=== PATIENT | male | born 1970 | race Hispanic/Latino ===

== ENCOUNTER 2020-06-13 10:58 | Observation (INO) | payer BC, MEDICARE ==
[~2020-06-13] VITALS: Ht 167.6 cm; Wt 142.9 kg
--- OUTSIDE RECORDS SUMMARY | 2020-06-13 11:31 | XMS REPORT | Continuity of Care Document ---
Author Author [facility] t Organization [facility] Address [address] [place] [address] Phone Unavailable Care Team Providers Care Vehicle Maintenance Supervisor Name Role Phone Maria Lr Attphys Aki Smith Attphys Problems Condition Name Condition Details Condition Category Status Onset Date Resolution Date Last Treatment Date Treating Clinician Comments Source R76.12 - NONSPEC REACTION TO GAMMA INTR R76.12 - NONSPEC REACTION TO GAMMA INTR Active 03/01/2020 [facility] Diagnosis Active 2020-03-01 00:01:00 2020-04-08 12:27:00 M [facility] C64.9 MALIGNANT NEOPLASM OF UNSPECIFIED C64.9 MALIGNANT NEOPLASM OF UNSPECIFIED Active 07/29/2019 [facility] Diagnosis Ac tive 2019-07-29 00:00:00 2019-08-21 11:25:00 [facility]LAS[facility] LEFT RENAL PELVIS MALIGNANT NEOPLASM OF LEFT RENAL PELVIS Active [facility] Diagnosis Active 2019-08-21 11:25:00 [facility] Allergies, Adverse Reactions, Alerts This patient has no known allergies or adverse reactions. Medications This patient has no known medications. Procedures This patient has no known procedures. Encounters Start Date/Time End Date/Time Encounter Type Admission Type [facility] Care Department Encounter ID Source 2020-03-04 14:23:00 2020-03-04 23:59:00 [id number] 2019-08-21 11:18:00 2019-08-21 23:59:00 Outpatient Ramonmat Davidteja [facility] [id number] 2019-08-21 11:18:00 2019-08-21 11:18:00 [facility] [address] [facility] Results This patient has no known results.
--- OUTSIDE RECORDS SUMMARY | 2020-06-13 11:31 | XMS REPORT | Continuity of Care Document ---
Author Author [place] DENNIS Reece yeppt Address Unknown Phone Unavailable Care Team Providers Care Supervisor Firearms Name Role Phone RAP Index Information EBIQUOUS Unavailable Un available Problems Problem Status Onset Date Classification Date Reported Comments Source R76.12 - NONSPEC REACTION TO GAMMA INTR Active 03/01/2020 NANY Dowell C64.9 MALIGNANT NEOPLASM OF UNSPECIFIED Active 07/29/2019 [facility] MALIGNANT NEOPLASM OF LEFT RENAL PELVIS Active [facility] Medications No Data Provided for This Section Allergies, Adverse Reactions, Alerts No Known Medication Allergies Immunizations No Data Provided for This Section Results No Data Provided for This Section Pathology Reports No Data Provided for This Section Diagnostic Reports Report Value Date Source Chest 2 views DX HISTORY: - R76.12 Nonspecific reaction to cell mediated immunity measurement of gamma interferon antigen response without active tuberculosis TECHNIQUE: PA and lateral views of the chest. COMPARISON: None available. FINDINGS: Linear atelectasis versus scarring is seen in the left mid to lower lung zone. There is no focal consolidation, pleural effusion, or evidence of pneumothorax. The cardiomediastinal silhouette and pulmonary vasculature are within normal limits. IMPRESSION: No radiographic evidence of acute cardiopulmonary disease. [id number] 03/04/[address] Other Tumor PROCEDURE I NFORMATION: Exam: PET/CT Skull Base to Mid-thigh Exam date and time: 08/21/2019 1:04 PM Age: 49 years old Clinical indication: Malignant neoplasm of left renal pelvis; Additional info: Restaging - c65.2 malignant neoplasm of left renal pelvis/dlp= 2719.92 mgy*cm , ctdivol= 15.75 mgy LABS AND CLINICAL REPORTS: Glucose: 91 mg/dl TECHNIQUE: Imaging protocol: Following at least four-hour fasting and following the injection of F-18-FDG, low dose CT images were obtained from the orbital meatal line through the pelvis. Then, PET images were obtained through the same region. Attenuation corrected images were constructed using the CT scan. Fused images of PET and CT were reviewed. The standardized uptake values (SUV) reported below are maximum values within a region of interest, expressed in gm/ml. Radiopharmaceutical: 16.0 mCi F18-FDG, IV Time of imaging post radiopharmaceutical administration: 1 hour Injection site: Right hand COMPARISON: No relevant prior studies available. FINDINGS: Head: Visualized portion of the brain demonstrates no abnormality in the radiotracer distribution of the cortex, deep subcortical structures, and the cerebellum. Right maxillary sinus polyps or mucous retention cyst. Neck: Evaluation of the neck demonstrates normal uptake within the cervical lymph nodes. There is normal uptake within the salivary glands, and remaining cervical structures. Chest: Evaluation of the thorax demonstrates no abnormal uptake within the lungs. Physiologic myocardial uptake is present. There are no hypermetabolic mediastinal lymph nodes. Cardiomegaly. Bibasilar atelectasis. Abdomen and Pelvis: Examination of the abdomen and pelvis shows normal uptake within the adrenal glands, liver, spleen, pancreas, renal cortices and collecting system. There are no hypermetabolic lymph nodes. Post left nephrectomy. Hepatomegaly. Nonspecific colonic uptake. Bones/joints: No metabolically active areas are noted within the osseous structures. Soft tissues: No metabolically active areas are noted within the soft tissue. IMPRESSION: 1. No abnormal metabolic activity to sug gest malignancy. 2. Nonspecific colonic uptake. Correlati on with a recent colonoscopy is recommended. Jez Skelton MD On 08/22/2019 08:26:26; [id number] 08/21/2019 [facility] Consultation Notes No Data Provided for This Section Discharge Summaries No Data Provided for This Section History and Physicals No Data Provided for This Section Vital Signs No Data Provided for This Section Encounters Location Location Details Encounter Type Encounter Number Reason For Visit Attending Provider ADM Date DC Date Status Source [facility] Outpatient [id number] Irfteja Jawed 08/21/2019 08/22/2019 [facility] [place] Outpt Diag Services [id number] 00 Asuncion Lr 03/04/2020 03/05/2020 [facility] [place] Procedures No Data Provided for This Section Assessment and Plan No Data Provided for This Section Plan of Care No Data Provided for This Section Social History Social History Date Source Social History TypeResponse 03/05/2020 [facility] [place] Social History TypeResponse 08/22/2019 [facility] Family History No Data Provided for This Section Advance Directives No Data Provided for This Section Functional Status No Data Provided for This Section
--- NOTE | 2020-06-13 12:06 | Emergency Department Note ---
History of Present Illnes History of Present Illness Chief Complaint: Respiratory History of Present Illness This is a 50 year old male with 2 week history of cough shortness reza th and generalized malaise/weakness. . Chief Complaint Comment PATIENT IN FROM HOME WITH COMPLAINTS OF COUGH X 2 WEEKS AND SHORTNESS OF BREATH STARTING THIS MORNING. PATIENT AFEBRILE, RESP EVEN AND NONLABORED, APPEARS IN NO DISTRESS, SHORTNESS OF BREATH ON EXERTION. PATIENT PRESCRIBED A DIURETIC ON SUNDAY FOR BILATERAL LOWER EXTREMITY SWELLING Historian: Patient Arrival Mode: Car Onset (how long ago): day(s) Severity: mild Duration (how long): day(s) Timing of current episode: constant Progression: worsening Chronicity: new Relieving factors: none Past Medical/Family History Physician Review I have reviewed the patient's past medical and family history. Any updates have been documented here. Past Medical History Recent Fever: No Clinical Suspicion of Infectio: Yes New/Unexplained Change in Ment: No Past Medical History: Hypertension, Diabetes, Hypothyroidism, Hyperlipedemia, Chronic Kidney Disease Other Medical History: SPONDYLOSIS Past Surgical History: Cholecysctectomy, T&A Other Surgery: LEFT NEPHRECTOMY Social History Physically hurt or threatened: No Review of Systems Review of Systems Constitutional: Reports no symptoms EENTM: Reports no symptoms Cardiovascular: Reports no symptoms Respiratory: Reports as per HPI, Reports cough, Reports dyspnea, Reports dyspnea on exertion Gastrointestinal: Reports no symptoms Genitourinary: Reports no symptoms Musculoskeletal: Reports no symptoms Integumentary: Reports no symptoms Neurological: Reports no symptoms Psychological: Reports no symptoms Endocrine: Reports no symptoms Hematological/Lymphatic: Reports no symptoms Physical Exam Related Data Allergies: Coded Allergies: No Known Allergies (Unverified , 06/13/20) Triage Vital Signs Vital Signs Date Time Temp Pulse Resp B/P (MAP) Pulse Ox O2 Delivery O2 Flow Rate FiO2 06/13/20 11:12 98.0 65 18 125/78 100 Room Air Vital signs reviewed: Yes Physical Exam CONSTITUTIONAL Constitutional: Present well-developed, Present well-nourished, Present obese HENT HENT: Present normocephalic, Present atraumatic, Present oropharynx clear/moist, Present nose normal HENT L/R: Present left ext ear normal, Present right ext ear normal EYES Eyes: Reports PERRL, Reports conjunctivae normal NECK Neck: Present ROM normal PULMONARY Pulmonary: Present effort normal, Present breath sounds normal CARDIOVASCULAR Cardiovascular: Present regular rhythm, Present heart sounds normal, Present capillary refill normal, Present normal rate GASTROINTESTINAL Abdominal: Present soft, Present nontender, Present bowel sounds normal GENITOURINARY Genitourinary: Present exam deferred SKIN Skin: Present warm, Present dry MUSCULOSKELETAL Musculoskeletal: Present ROM normal NEUROLOGICAL Neurological: Present alert, Present oriented x 3, Present no gross motor or sensory deficits PSYCHOLOGICAL Psychological: Present mood/affect normal, Present judgement normal Results Laboratory Lab results reviewed: Yes Laboratory comments Laboratory Tests Test 06/13/20 12:20 06/13/20 12:00 White Blood Count 14.73 x10e3/uL (4.8-10.8) Red Blood Count 4.79 x10e6/uL (4.3-5.7) Hemoglobin 13.7 g/dL (14.0-18.0) Hematocrit 42.1 % (38.2-49.6) Mean Corpuscular Volume 87.9 fL (81-99) Mean Corpuscular Hemoglobin 28.6 pg (28-32) Mean Corpuscular Hemoglobin Concent 32.5 g/dL (31-35) Red Cell Distribution Width 13.6 % (11.7-14.4) Platelet Count 329 x10e3/uL (140-360) Neutrophils (%) (Auto) 68.6 % (38.7-80.0) Lymphocytes (%) (Auto) 22.3 % (18.0-39.1) Monocytes (%) (Auto) 6.2 % (4.4-11.3) Eosinophils (%) (Auto) 1.7 % (0.0-6.0) Basophils (%) (Auto) 0.5 % (0.0-1.0) Neutrophils # (Auto) 10.1 (2.1-6.9) Lymphocytes # (Auto) 3.3 (1.0-3.2) Monocytes # (Auto) 0.9 (0.2-0.8) Eosinophils # (Auto) 0.3 (0.0-0.4) Basophils # (Auto) 0.1 (0.0-0.1) Absolute Immature Granulocyte (auto 0.11 x10e3/uL (0-0.1) Prothrombin Time 13.7 seconds (11.9-14.5) Prothromb Time International Ratio 1.00 Sodium Level 136 mmol/L (136-145) Potassium Level 3.7 mmol/L (3.5-5.1) Chloride Level 96 mmol/L (98-107) Carbon Dioxide Level 27 mmol/L (22-29) Anion Gap 16.7 mmol/L (8-16) Blood Urea Nitrogen 40 mg/dL (7-26) Creatinine 3.31 mg/dL (0.72-1.25) Estimat Glomerular Filtration Rate 20 ML/MIN (60-) BUN/Creatinine Ratio 12 (6-25) Glucose Level 280 mg/dL (74-118) Calcium Level 8.8 mg/dL (8.4-10.2) Total Bilirubin 0.5 mg/dL (0.2-1.2) Aspartate Amino Transf (AST/SGOT) 23 IU/L (5-34) Alanine Aminotransferase (ALT/SGPT) 11 IU/L (0-55) Alkaline Phosphatase 101 IU/L (40-150) Creatine Kinase 88 IU/L (30-200) Creatine Kinase MB 0.90 ng/mL (0-5.0) Troponin I 0.014 ng/mL (0-0.300) B-Type Natriuretic Peptide < 10.0 pg/mL (0-100) Total Protein 7.9 g/dL (6.5-8.1) Albumin 3.5 g/dL (3.5-5.0) Globulin 4.4 g/dL (2.3-3.5) Albumin/Globulin Ratio 0.8 (0.8-2.0) Imaging Imaging results reviewed: Yes Assessment & Plan Medical Decision Making MDM 50-year-old male arrives the ED with complaints of shortness of breath and chest pain several days. Patient but symptoms did start after taking Viagra, tachycardic and tachypneic on arrival. Concerns of possible pulmonary embolus. Patient also noted to have renal failure. VQ scan performed a followed up by primary attending. Patient admitted for further workup and management Assessment & Plan Final Impression: (1) Dyspnea Depart Disposition: ADMITTED Last Vital Signs Date Time Temp Pulse Resp B/P (MAP) Pulse Ox O2 Delivery O2 Flow Rate FiO2 06/13/20 11:12 98.0 65 18 125/78 100 Room Air Home Meds Reported Medications Simvastatin (SIMVASTATIN) 20 Mg Tablet, 20 MG PO 2100, EA 06/13/20 Metolazone (METOLAZONE) 5 Mg Tablet, 5 MG PO MON,WED,FRI, #30 TAB 06/13/20 Tramadol Hcl* (ULTRAM 50MG*) 50 Mg Tab, 0.5 TAB PO DAILY PRN for SEVERE PAIN (7- 10) 06/13/20 Metoprolol Tartrate (METOPROLOL TARTRATE) 50 Mg Tablet, 1 TAB PO DAILY 06/13/20 Furosemide (FUROSEMIDE) 80 Mg Tablet, 1 TAB PO DAILY 06/13/20 Glipizide (GLIPIZIDE ER) 5 Mg Tab.er.24, 1 TAB PO BID 06/13/20 Losartan Potassium (LOSARTAN POTASSIUM) 100 Mg Tablet, 100 MG PO DAILY, TAB 06/13/20 Amlodipine Besylate (AMLODIPINE BESYLATE) 10 Mg Tablet, 1 TAB PO DAILY 06/13/20 Calcifediol (Rayaldee) 30 Mcg Cap.sa.24h, 1 CAP PO HS 06/13/20 NELLIE KRAUS DO Jun 13, 2020 12:06
[2020-06-13 12:10] LABS: BASOPHILS # (AUTO) 0.1 (0.0-0.1); BASOPHILS % 0.5 % (0.0-1.0); EOSINOPHILS # (AUTO) 0.3 (0.0-0.4); EOSINOPHILS % 1.7 % (0.0-6.0); HEMATOCRIT 42.1 % (38.2-49.6); HEMOGLOBIN 13.7 g/dL (14.0-18.0); LYMPHOCYTES # (AUTO) 3.3 (1.0-3.2); LYMPHOCYTES % 22.3 % (18.0-39.1); MEAN CORPUSCULAR HEMOGLOBIN 28.6 pg (28-32); MEAN CORPUSCULAR HGB CONC 32.5 g/dL (31-35); MEAN CORPUSCULAR VOLUME 87.9 fL (81-99); MONOCYTES # (AUTO) 0.9 (0.2-0.8); MONOCYTES % 6.2 % (4.4-11.3); NEUTROPHILS # (AUTO) 10.1 (2.1-6.9); NEUTROPHILS % 68.6 % (38.7-80.0); PLATELET COUNT 329 x10e3/uL (140-360); RED BLOOD COUNT 4.79 x10e6/uL (4.3-5.7); RED CELL DISTRIBUTION WIDTH 13.6 % (11.7-14.4)
[2020-06-13] MEDS ORDERED: RAYALDEE30 MCG PO (12:11)
[2020-06-13] MEDS ORDERED: LOSARTAN POTAS100 MG PO (12:11)
[2020-06-13] MEDS ORDERED: AMLODIPINE BESY10 MG PO (12:11)
[2020-06-13] MEDS ORDERED: SIMVASTATIN20 MG PO (12:11)
[2020-06-13] MEDS ORDERED: METOPROLOL TART50 MG PO (12:11)
[2020-06-13] MEDS ORDERED: GLIPIZIDE ER5 MG PO (12:11)
[2020-06-13] MEDS ORDERED: METOLAZONE5 MG PO (12:11)
[2020-06-13] MEDS ORDERED: FUROSEMIDE80 MG PO (12:11)
[2020-06-13] MEDS ORDERED: ULTRAM 50MG50 MG PO (12:11)
--- NOTE | 2020-06-13 12:17 | Diagnostic Imaging Report ---
EXAMINATION: CHEST SINGLE (PORTABLE) INDICATION: Dizziness and shortness of breath. COMPARISON: None FINDINGS: TUBES and LINES: None. LUNGS: Normal lung volumes. Lungs are clear. No consolidations. There is bibasilar atelectasis. PLEURA: No pleural effusion or pneumothorax. HEART AND MEDIASTINUM: The cardiomediastinal silhouette is unremarkable. BONES AND SOFT TISSUES: No acute osseous lesion. Soft tissues are unremarkable. UPPER ABDOMEN: No free air under the diaphragm. IMPRESSION: No acute thoracic radiographic abnormality. Signed by: Gilbert Rodriguez MD on 06/13/2020 12:14 PM
[2020-06-13 12:18] LABS: PROTHROMBIN TIME 13.7 seconds (11.9-14.5)
[2020-06-13 12:25] LABS: ALBUMIN 3.5 g/dL (3.5-5.0); ALBUMIN/GLOBULIN RATIO 0.8 (0.8-2.0); ANION GAP 16.7 mmol/L (8-16); CALCIUM 8.8 mg/dL (8.4-10.2); CREATININE, SERUM 3.31 mg/dL (0.72-1.25); POTASSIUM 3.7 mmol/L (3.5-5.1)
[2020-06-13 12:35] LABS: CREATINE KINASE MB 0.9 ng/mL (0-5.0)
--- OUTSIDE RECORDS SUMMARY | 2020-06-13 14:40 | XMS REPORT | Continuity of Care Document ---
Author Author [facility] [place] DENNIS Reece [place] Address Unknown Phone Unavailable Care Team Providers Care Qa Software Tester Name Role Phone MobiPixie Information ClipMine Unavailable Un available Problems Problem Status Onset Date Classification Date Reported Comments Source R76.12 - NONSPEC REACTION TO GAMMA INTR Active 03/01/2020 NANY Dowell C64.9 MALIGNANT NEOPLASM OF UNSPECIFIED Active 07/29/2019 [facility] MALIGNANT NEOPLASM OF LEFT RENAL PELVIS Active [facility] Medications No Data Provided for This Section [...] No radiographic evidence of acute cardiopulmonary disease. [id number] 03/04/[address] Other Tumor [...] recommended. Jez Skelton MD On 08/22/2019 08:26:26; [id number] 08/21/2019 [facility] Consultation Notes No Data Provided for This Section Discharge Summaries No Data Provided for This Section History and Physicals No Data Provided for This Section Vital Signs No Data Provided for This Section Encounters Location Location Details Encounter Type Encounter Number Reason For Visit Attending Provider ADM Date DC Date Status Source [facility] Outpatient [id number] Irfteja Jawed 08/21/2019 08/22/2019 [facility] - [place] Outpt Diag Services [id number] Asuncion Lr 03/04/2020 03/05/2020 [facility] [place] Procedures No Data Provided for This Section Assessment and Plan No Data Provided for This Section Plan of Care No Data Provided for This Section Social History Social History Date Source Social History TypeResponse 03/05/2020 [facility] [place] Social History TypeResponse 08/22/2019 [facility] Family History No Data Provided for This Section Advance Directives No Data Provided for This Section Functional Status No Data Provided for This Section
--- OUTSIDE RECORDS SUMMARY | 2020-06-13 14:40 | XMS REPORT | Continuity of Care Document ---
Author Author [facility] t Organization [facility] Address [address] [place] [address] Phone Unavailable Care Team Providers Care Reconciliation Machine Operator Name Role Phone LIDIARoseannaTaiwo Attphys Unavailable Lr Maria Roland Attphys Aki Smith Attphys Problems Condition Name Condition Details Condition Category Status Onset Date Resolution Date Last Treatment Date Treating Clinician Comments Source R76.12 - NONSPEC REACTION TO GAMMA INTR R76.12 - NONSPEC REACTION TO GAMMA INTR Active 03/01/2020 NANY Dowell Diagnosis Active 2020-03-01 00:01:00 2020-04-08 12:27:00 [facility] C64.9 MALIGNANT NEOPLASM OF UNSPECIFIED C64.9 MALIGNANT NEOPLASM OF UNSPECIFIED Active 07/29/2019 [facility] Diagnosis Ac tive 2019-07-29 00:00:00 2019-08-21 11:25:00 [facility] 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 Medications This patient has no known medications. Procedures This patient has no known procedures. Encounters Start Date/Time End Date/Time Encounter Type Admission Type [facility] Care Department Encounter ID Source 2020-03-04 14:23:00 2020-03-04 23:59:00 Outpatient Asuncion Lr [facility] [id number] 2019-08-21 11:18:00 2019-08-21 23:59:00 Outpatient Aki Smith [facility] [id number] 2019-08-21 11:18:00 2019-08-21 11:18:00 Outpatient [facility] [address] [facility] Results Test Description Test Time Test Comments Results Result Comments Source CHEST SINGLE (PORTABLE) 2020-06-13 12:13:00 [place] [address] Patient Name: DENNIS NAM MR #: [id number] : 1970 Age/Sex: 50/M Req #: [id number] Adm Physician: Ordered by: NELLIE KRAUS DO Report #: [id number] Location: ER Room/Bed: Procedure: [id number] DX/CHEST SINGLE (PORTABLE) Exam Date: 06/13/20 Exam Time: 1110 REPORT STATUS: Signed EXAMINATION: CHEST SINGLE (PORTABLE) INDICATION: Dizziness and shortness of breath. COMPARISON: None FINDINGS: TUBES and LINES: None. LUNGS: Normal lung volumes. Lungs are clear. No consolidations. There is bibasilar atelectasis. PLEURA: No pleural effusion or pneumothorax. HEART AND MEDIASTINUM: The cardiomediastinal silhouette is unremarkable. BONES AND SOFT TISSUES: No acute osseous lesion. Soft tissues are unremarkable. UPPER ABDOMEN: No free air under the diaphragm. IMPRESSION: No acute thoracic radiographic abnormality. Signed by: Himanshu Avila MD on 06/13/2020 12:14 PM Dictated By: HIMANSHU AVILA MD 1213 Transcribed By: KEN on 06/13/20 1214 COPY TO: NELLIE KRAUS DO
--- NOTE | 2020-06-13 14:54 | Diagnostic Imaging Report ---
EXAM: CT Chest WITHOUT contrast INDICATION: Chest pain and shortness of breath. COMPARISON: Same day chest radiograph. TECHNIQUE: Chest was scanned utilizing a multidetector helical scanner from the lung apex through the level of the adrenal glands without administration of IV contrast. Absence of intravenous contrast decreases sensitivity for detection of lymphadenopathy and vascular pathology. Coronal and sagittal reformations were obtained. Routine protocol was performed. IV CONTRAST: None COMPLICATIONS: None RADIATION DOSE: Total DLP: 536 mGy*cm Estimated effective dose: (DLP x 0.014 x size factor) mSv CTDIvol has been reviewed. It is below the limits set by the Radiation Protocol Committee (RPC). Dose modulation, iterative reconstruction, and/or weight based adjustment of the mA/kV was utilized to reduce the radiation dose to as low as reasonably achievable. FINDINGS: LINES/ TUBES: None. LUNGS, PLEURA AND AIRWAYS: Airways are normal. There is bibasilar atelectasis. No focal consolidation, pleural effusion or pneumothorax. HEART AND MEDIASTINUM: The thyroid gland is normal. No mediastinal, hilar or axillary lymphadenopathy. The heart is normal in size. There is no pericardial effusion. There are mild atherosclerotic calcifications in the aorta and coronary arteries. UPPER ABDOMEN: Unremarkable. BONES: There are degenerative changes in the thoracic spine with slightly increased kyphosis. SOFT TISSUES: Unremarkable. IMPRESSION: No acute intrathoracic abnormality identified. Specifically, no focal consolidation, pleural effusion or pneumothorax. Signed by: Gilbert Rodriguez MD on 06/13/2020 2:50 PM
--- NOTE | 2020-06-13 16:17 | Diagnostic Imaging Report ---
Perfusion Lung Scan NOTE: Lung ventilation studies with xenon are not being performed per the recommendation of the Society of Nuclear Medicine and Molecular Imaging. It is not possible to be certain that the ventilation system is adequately disinfected. Ventilation studies with Tc-99m DTPA particles is contraindicated because the delivery by nebulization generates too many water droplets from the patient's airway. Clinical Information: Acute onset dyspnea Comparison: Chest radiograph 06/13/2020; Ct chest w/o contrast 06/13/2020 Discussion: Ventilation images were not obtained. See note above. Perfusion images of the lungs were obtained in multiple projections following intravenous administration of approximately 6 mCi of Tc-99m MAA. Distribution of tracer appears physiologic throughout the lungs. No segmental perfusion defects of any size are present. The cardiomediastinal silhouette is borderline enlarged. Impression: 1. Scan findings represent a VERY LOW probability for acute pulmonary embolic disease based on the perfusion-only modified PIOPED II criteria. Concurrent ventilation study would not alter the assigned probability for acute PE. 2. Borderline enlarged cardiac silhouette. Signed by: Dr. Suri Lewis M.D. on 06/13/2020 4:14 PM
[2020-06-13] MEDS ORDERED: HUMULIN N100 UNITS/ SQ (18:05)
[2020-06-13] MEDS ORDERED: ACETAMINOPHEN 325 MG TAB PO PRN (18:30)
[2020-06-13] MEDS ORDERED: ONDANSETRON HCL INJ 2MG/ML 2ML 2 MG/ML VIAL IV PRN (18:30)
[2020-06-13] MEDS ORDERED: DEXTROSE 50% SYRINGE 50 ML IV PRN (18:30)
[2020-06-13] MEDS ORDERED: TRAMADOL HCL 50 MG TAB PO PRN (18:30)
[2020-06-13] MEDS ORDERED: MELATONIN 5 MG TABLET PO PRN (18:30)
[2020-06-13] MEDS ORDERED: HYDRALAZINE HCL 20 MG/ML VIAL IV PRN (18:30)
[2020-06-13] MEDS: INSULIN LISPRO 100 UNIT/1 ML 3ML VIAL SQ SCH (20:41)
[2020-06-13] MEDS ORDERED: CALCIFEDIOL PO SCH (21:00)
[2020-06-13] MEDS ORDERED: SIMVASTATIN 20 MG TAB PO SCH (21:00)
[2020-06-13] MEDS ORDERED: FAMOTIDINE 20 MG/2 ML VIAL IV SCH (21:30)
[2020-06-13 21:37] VITALS: BP 120/66
[2020-06-13 23:06] VITALS: BP 120/66
[2020-06-14 00:05] VITALS: BP 113/63
[2020-06-14 04:00] VITALS: BP 147/75
[2020-06-14 05:59] LABS: BASOPHILS # (AUTO) 0.1 (0.0-0.1); BASOPHILS % 0.6 % (0.0-1.0); EOSINOPHILS # (AUTO) 0.3 (0.0-0.4); EOSINOPHILS % 1.8 % (0.0-6.0); HEMATOCRIT 39.7 % (38.2-49.6); HEMOGLOBIN 12.8 g/dL (14.0-18.0); LYMPHOCYTES # (AUTO) 4.7 (1.0-3.2); LYMPHOCYTES % 29.6 % (18.0-39.1); MEAN CORPUSCULAR HEMOGLOBIN 28.4 pg (28-32); MEAN CORPUSCULAR HGB CONC 32.2 g/dL (31-35); MONOCYTES # (AUTO) 1.1 (0.2-0.8); MONOCYTES % 6.8 % (4.4-11.3); NEUTROPHILS # (AUTO) 9.6 (2.1-6.9); NEUTROPHILS % 60.7 % (38.7-80.0); PLATELET COUNT 324 x10e3/uL (140-360); RED BLOOD COUNT 4.51 x10e6/uL (4.3-5.7); RED CELL DISTRIBUTION WIDTH 13.8 % (11.7-14.4)
[2020-06-14] MEDS ORDERED: FAMOTIDINE 20 MG TAB PO SCH (06:00)
[2020-06-14 06:29] LABS: ALBUMIN 3.4 g/dL (3.5-5.0); ALBUMIN/GLOBULIN RATIO 0.8 (0.8-2.0); ANION GAP 16.1 mmol/L (8-16); CALCIUM 8.6 mg/dL (8.4-10.2); CREATININE, SERUM 3.11 mg/dL (0.72-1.25); POTASSIUM 3.1 mmol/L (3.5-5.1)
[2020-06-14 06:47] LABS: CHOL/HDL RATIO 3.7 (3.9-4.7)
--- NOTE | 2020-06-14 07:00 | NUR ---
RECEIVED PATIENT RESTING IN BED NO S/S OF DISTRESS. BED LOW, WHEELS LOCKED, SIDE RAILS X2. CALL LIGHT IN REACH WILL CONTINUE TO MONITOR PATIENT.
[2020-06-14 07:08] LABS: THYROID STIMULATING HORMONE 1.328 uIU/mL (0.350-4.940)
[2020-06-14] MEDS: INSULIN LISPRO 100 UNIT/1 ML 3ML VIAL SQ SCH (07:30)
[2020-06-14 08:00] VITALS: BP 121/73
[2020-06-14 08:19] VITALS: BP 121/73
[2020-06-14] MEDS ORDERED: METOPROLOL TARTRATE 50 MG TAB PO SCH (09:00)
[2020-06-14] MEDS ORDERED: POTASSIUM CHLORIDE 20 MEQ TAB CR PO ONE (09:30)
--- NOTE | 2020-06-14 10:19 | Consultation ---
DATE OF CONSULTATION: Renal Consultation Thank you for the consultation. HISTORY OF PRESENT ILLNESS: Mr. Diallo is a pleasant 50-year-old male patient with a past medical history significant for hypertension, diabetes mellitus, congestive heart failure, also prior history of renal cell carcinoma, status post left nephrectomy. The patient came into the emergency room with complaints of shortness of breath and cough, was admitted for further evaluation. Blood work was found to have creatinine of 3.3 on admission, has improved slightly to 3.1 mg/dL. Renal consultation has been asked for the management of what appears to be chronic kidney disease with mild degree of acute kidney injury, possibly from prerenal state. No current fever, no chills, no nausea, no vomiting, no diarrhea, no abdominal pain. No other symptoms besides what is outlined above. PAST MEDICAL HISTORY: As outlined above. ALLERGIES: NO KNOWN DRUG ALLERGIES. SOCIAL HISTORY: No tobacco, no alcohol use. FAMILY HISTORY: Noncontributory. REVIEW OF SYSTEMS: See HPI. Otherwise, all systems negative. HOME MEDICATIONS: 1. Amlodipine. 2. Rayaldee. 3. Furosemide. 4. Glipizide. 5. Insulin. 6. Losartan. 7. Metolazone. 8. Metoprolol. 9. Simvastatin. PHYSICAL EXAMINATION: VITAL SIGNS: Blood pressure is 121/73, pulse ox 99% on room air, the patient is afebrile, 66 pulse. HEENT: No cervical lymphadenopathy. NECK: Supple without masses. No obvious JVD. Moist appearing oral mucosa. SKIN: Moist with good skin turgor. CHEST WALL: Good expansion. No chest wall tenderness. LUNGS: Clear to auscultation bilaterally. CARDIOVASCULAR: S1, S2. No obvious gallop, rub, or murmur. ABDOMEN: Soft. Positive bowel sounds. Nontender. No organomegaly. EXTREMITIES: No evidence of lower extremity edema. No clubbing, no cyanosis. NEUROLOGIC: Awake, alert and oriented x3. Grossly nonfocal exam. LABORATORY DATA: Sodium 136, potassium 3.7, CO2 27, BUN 40, creatinine 3.3 on admission. Today's labs potassium slightly low at 3.1, BUN 40, creatinine 3.1, and sodium is 139. IMPRESSION AND PLAN: 1. Chronic kidney disease stage 4, appears to be at his baseline with slight improvement overnight and the creatinine will continue to monitor closely. The patient does have left-sided nephrectomy and will likely have CKD, although it is getting to a stage IV level now. We will continue to monitor while the patient is here in the hospital. Avoid potential nephrotoxic agents, avoid SANTIAGO inhibitors, ARB, nonsteroidal anti-inflammatory drugs and IV dye at this time. 2. Hypertension, blood pressure is currently controlled on current medication. We will continue to monitor. 3. Hypokalemia. We will replace scheduled potassium. We will make further recommendations. Thank you once again for the consultation. We will follow the patient closely along with you and make further recommendations. MD ELVIRA Whatley/MAARAL /[id number] cc: Tico Ellis MD
--- NOTE | 2020-06-14 11:00 | NUR ---
REMOVED PATIENTS IV CATHETER TIP INTACT AND PRESSURE DRESSING APPLIED.
--- NOTE | 2020-06-14 11:21 | NUR ---
PATIENT DISCHARGED FROM FACILITY. PATIENT GATHERED ALL PERSONAL BELONGINGS, DISCHARGE INSTRUCTIONS, AND FOLLOW UP INFORMATION. PATIENT LEFT UNIT IN WHEELCHAIR AND WENT HOME VIA PRIVATE AUTO.
--- NOTE | 2020-06-14 17:56 | Discharge Summary ---
ADMISSION DIAGNOSES: 1. Anxiety. 2. Chronic kidney disease 4. 3. Leukocytosis. 4. Hypertension. 5. Type 2 diabetes. 6. Hyperlipidemia. 7. Super morbid obesity with a BMI of 50.8. DISCHARGE DIAGNOSES: 1. Anxiety. 2. Chronic kidney disease 4. 3. Leukocytosis. 4. Hypertension. 5. Type 2 diabetes. 6. Hyperlipidemia. 7. Super morbid obesity with a BMI of 50.8. HISTORY: CKD 4, hypertension, hyperlipidemia, type 2 diabetes, hypothyroidism, kidney cancer, spondylosis. SURGICAL HISTORY: In 2017, the patient had left nephrectomy, tonsillectomy, cholecystectomy. FAMILY HISTORY: The patient's mom, dad, and sister have diabetes. The patient's mom and dad had a heart attack. SOCIAL HISTORY: Noncontributory. HOSPITAL COURSE: A 50-year-old male admits with complaints of anxiety and feeling like he "had to get up" that began yesterday morning. He admits that about an hour before these symptoms started, he took Viagra. About 15 minutes later, these symptoms went away. An hour later, these symptoms returned, so he came to the ER. He checked his systolic blood pressure after the 2nd time and it was 117, which he says is really low for him. He denies focal weakness and dizziness. On admission, a V/Q scan was done, which was negative. CT of the chest showed no acute abnormality. Chest x-ray was negative. The patient's A1c was found to be 8.8%. He was advised to follow a diabetic diet. TSH is within normal limits. WBC was elevated, but it tends to be elevated with no signs of infection. Coronavirus was negative. The patient is no longer symptomatic. He was advised to stop taking his metolazone as he recently started that due to bilateral lower extremity swelling. Nephrology recommended he continue all other home medications besides the metolazone. The patient will follow up with primary care in 1 to 2 weeks and Nephrology as discussed. The patient understands discharge instructions and agrees to plan. Vital signs stable. The patient is afebrile. Dictated by Tiana Lowry NP Tico Ellis MD JENNIFER/MODL /[id number]
== END 2020-06-14 11:21 | disposition home or self-care (01) ==
LOC: ER 11:29 → ERHOLD 14:27 → MED/SURG 21:41
PROVIDERS: ADMIT Internal Medicine; ATTEND Internal Medicine
DX: F41.9 Anxiety disorder, unspecified (principal); I12.9 Hypertensive chronic kidney disease with stage 1 through stage 4 chronic kidney disease, or unspecified chronic kidney disease; N18.4 Chronic kidney disease, stage 4 (severe); E66.01 Morbid (severe) obesity due to excess calories; Z68.43 Body mass index [BMI] 50.0-59.9, adult; E78.5 Hyperlipidemia, unspecified; Z11.59 Encounter for screening for other viral diseases
CPT/HCPCS: 36415 ×2; 71045; 71250; 78582; 80053 ×2; 80061; 82550; 82553; 82948 ×2; 83036; 83880; 84443; 84484; 85025 ×2; 85610; 93005; 99284; A9540; G0378 ×2; U0002

== ENCOUNTER 2020-07-14 09:05 | Emergency (ER) | payer BC, MEDICARE ==
[~2020-07-14] VITALS: Ht 167.6 cm; Wt 142.9 kg
[~2020-07-14 09:05] MED LIST: AMLODIPINE BESY10 MG PO; FUROSEMIDE80 MG PO; GLIPIZIDE ER5 MG PO; HUMULIN N100 UNITS/ SQ; LOSARTAN POTAS100 MG PO; METOLAZONE5 MG PO; METOPROLOL TART50 MG PO; RAYALDEE30 MCG PO; SIMVASTATIN20 MG PO; ULTRAM 50MG50 MG PO
--- NOTE | 2020-07-14 09:29 | Emergency Department Note ---
History of Present Illnes History of Present Illness Chief Complaint: General Medicine Complaints History of Present Illness This is a 50 year old male Chief Complaint Comment Patient in from home with complaints of bilateral lower extremity edema, tingling throughout his whole body and headache that started about 30 minutes prior to arrival. Denies chest pain, shortness of breath, fever, nausea and vomiting. Patient reports that he normally has some swelling in his lower extremities but this is worse than normal. Admits to sleeping on the couch last night without his legs elevated. Patient is on lasix and was recently started on another diuretic medication by his PCP but was told to stop it due to it dropping his blood pressure. Historian: Patient Arrival Mode: Car Clerical Adjudicator Required: No Onset (how long ago): week(s) Location: BLE Quality: swelling Radiation: Reports non-radiation Severity: moderate Onset quality: gradual Duration (how long): week(s) Timing of current episode: constant Progression: worsening Chronicity: chronic Context: Denies recent illness, Denies recent surgery Relieving factors: none Exacerbating factors: none Associated symptoms: Reports denies other symptoms Treatments prior to arrival: none Past Medical/Family History Physician Review I have reviewed the patient's past medical and family history. Any updates have been documented here. Past Medical History Recent Fever: No Clinical Suspicion of Infectio: No New/Unexplained Change in Ment: No Past Medical History: Hypertension, Diabetes, CHF, Cancer, Chronic Back Pain Other Medical History: kidney cancer Past Surgical History: Cholecysctectomy, T&A Other Surgery: left nephrectomy toncilectomy Review of Systems Review of Systems Constitutional: Reports as per HPI EENTM: Reports no symptoms Cardiovascular: Reports no symptoms Respiratory: Reports no symptoms Gastrointestinal: Reports no symptoms Genitourinary: Reports no symptoms Musculoskeletal: Reports as per HPI, Reports other (BLE swelling) Integumentary: Reports no symptoms Neurological: Reports no symptoms Psychological: Reports no symptoms Endocrine: Reports no symptoms Hematological/Lymphatic: Reports no symptoms Physical Exam Related Data Allergies: Coded Allergies: No Known Allergies (Unverified , 06/13/20) Triage Vital Signs Vital Signs Date Time Temp Pulse Resp B/P (MAP) Pulse Ox O2 Delivery O2 Flow Rate FiO2 07/14/20 09:12 97.1 62 18 127/73 100 Room Air Vital signs reviewed: Yes Physical Exam CONSTITUTIONAL Constitutional: Present well-developed, Present well-nourished HENT HENT: Present normocephalic, Present atraumatic, Present oropharynx clear/moist, Present nose normal HENT L/R: Present left ext ear normal, Present right ext ear normal EYES Eyes: Reports PERRL, Reports conjunctivae normal NECK Neck: Present ROM normal PULMONARY Pulmonary: Present effort normal, Present breath sounds normal CARDIOVASCULAR Cardiovascular: Present regular rhythm, Present heart sounds normal, Present capillary refill normal, Present normal rate GASTROINTESTINAL Abdominal: Present soft, Present nontender, Present bowel sounds normal GENITOURINARY Genitourinary: Present exam deferred SKIN Skin: Present warm, Present dry MUSCULOSKELETAL Musculoskeletal: Present ROM normal, Present swelling (BLE 2+ pitting. Pulses intact 2+, neurovascularly intact) NEUROLOGICAL Neurological: Present alert, Present oriented x 3, Present no gross motor or sensory deficits PSYCHOLOGICAL Psychological: Present mood/affect normal, Present judgement normal Results Laboratory Lab results reviewed: Yes Imaging Imaging results reviewed: Yes Diagnostics Tests Diagnostic test(s) reviewed: Yes Procedures 12 Lead ECG Interpretation ECG Interpretation : Clerical Adjudicator: Interpreted by ED physician Date: Jul 14, 2020 Rhythm: sinus rhythm Rate: normal QRS axis: normal Conduction: 1st degree ST segments normal: Yes T waves normal: Yes Clinical Impression: abnormal ECG Assessment & Plan Medical Decision Making MDM 50-year-old male with past medical history of hypertension and diabetes presents to the emergency department for bilateral lower extremity swelling. Symptoms have been worsening over the last couple days and particularly are worse today due to not elevating his legs at night sleeping in a recliner. He states he felt some total body tingling onset about 30 minutes ago. Initial differential includes heart failure versus DVT versus liver malfunction among others. Examination shows bilateral lower extremity swelling with 2+ pitting. Bilateral lower extremities are neurovascularly intact and exam was otherwise unremarkable. Workup including venous duplex ultrasound, labs, EKG show first degree AV block and otherwise unremarkable. No DVT. Diagnosis favors dependent edema 2/2 sleeping in recliner last night. Doubt emergent process at this time. I discussed results patient as well as expected disease time course and management. They will follow up with their primary care provider or return to the emergency department for new or worsening symptoms. Patient's appropriate for discharge. Assessment & Plan Final Impression: (1) Dependent edema Depart Disposition: HOME, SELF-CARE Last Vital Signs Date Time Temp Pulse Resp B/P (MAP) Pulse Ox O2 Delivery O2 Flow Rate FiO2 07/14/20 09:12 97.1 62 18 127/73 100 Room Air Home Meds Reported Medications Insulin Human Nph (HUMULIN N) 100 Units/Ml Ml, 45 UNITS SQ BID 06/13/20 Simvastatin (SIMVASTATIN) 20 Mg Tablet, 20 MG PO 2100, EA 06/13/20 Tramadol Hcl* (ULTRAM 50MG*) 50 Mg Tab, 0.5 TAB PO DAILY PRN for SEVERE PAIN (7- 10) 06/13/20 Metoprolol Tartrate (METOPROLOL TARTRATE) 50 Mg Tablet, 1 TAB PO DAILY 06/13/20 Furosemide (FUROSEMIDE) 80 Mg Tablet, 1 TAB PO DAILY 06/13/20 Glipizide (GLIPIZIDE ER) 5 Mg Tab.er.24, 1 TAB PO BID 06/13/20 Losartan Potassium (LOSARTAN POTASSIUM) 100 Mg Tablet, 100 MG PO DAILY, TAB 06/13/20 Amlodipine Besylate (AMLODIPINE BESYLATE) 10 Mg Tablet, 1 TAB PO DAILY 06/13/20 Calcifediol (Rayaldee) 30 Mcg Cap.sa.24h, 1 CAP PO HS 06/13/20 SAQIB LAUREN MD Jul 14, 2020 09:29
--- OUTSIDE RECORDS SUMMARY | 2020-07-14 09:35 | XMS REPORT | Continuity of Care Document ---
Author Author [facility] t Organization [facility] Address [address] [place] [address] Phone Unavailable Care Team Providers Care Manager Market Research Name Role Phone DO Daljit OVIEDO PCP GONZALEZ ARENAS Attphys Unavailable Maria Lr Attphys Aki Smith Attphys GONZALEZ ARENAS Admphys Unavailable Payers Payer Name Policy Type Policy Number Effective Date Expiration Date S ource Medicare A & B [id number] 2014 00:00:00 [facility] [employer] [place] Ppo [id number] 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 Social History Social Habit Start Date Stop Date Quantity Comments Source Sex Assigned At 1970 00:00:00 1970 00:00:00 Male [facility] Medications Ordered Medication Name Filled Medication Name Start Date Stop Da te Current Medication? Ordering Clinician Indication Dosage Frequency Signature (SIG) Comments Components Source Amlodipine Besylate Amlodipine Besylate Yes 1 Daily [facility] Calcifediol (Rayaldee) 30 Mcg CAP.SA.24H Calcifediol ( Rayaldee) 30 Mcg CAP.SA.24H Yes 1 Bedtime [facility] Furosemide Furosemide Yes 1 Daily [facility] Glipizide (Glipizide Er) 5 Mg TAB.ER.24 Glipizide (Glipizide Er) 5 Mg TAB.ER.24 Yes 1 Twice A Day [facility] Insulin Human Nph (Humulin N) 100 Units/Ml ML Insulin Human Nph (Humulin N) 100 Units/Ml ML Yes 45 Twice A Day [facility] Losartan Potassium Losartan Potassium Yes 100 Da irvin [facility] Metoprolol Tartrate Metoprolol Tartrate Yes 1 Daily [facility] Simvastatin Simvastatin Yes 20 Today At 9:00PM [facility] Tramadol Hcl (Ultram 50MG*) 50 Mg TAB Tramadol Hcl (Ultram 50MG*) 5 0 Mg TAB Yes .5 Daily as needed for Severe Pain (7-10) [facility] Metolazone Metolazone 2020-06-14 00:00:00 No 5 Mon ,Wed,Fri [facility] Vital Signs Vital Name Observation Time Observation Value Comments Source Body Temperature 2020-06-14 08:19:00 97.4 [degF] [facility] BMI (Body Mass Index) 2020-06-13 22:00:00 50.8 kg/m2 [facility] Weight 2020-06-13 11:12:00 315 [lb_av] [facility] Procedures Procedure Date / Time Performed Performing Clinician Jace e Computed tomography of chest without contrast 2020-06-13 00:00:0 0 [facility] Plan of Care Planned Activity Planned Date Details Comments Source Instructions Dyspnea [facility] Encounters Start Date/Time End Date/Time Encounter Type Admission Type [facility] Care Department Encounter ID Source 2020-06-13 14:27:00 2020-06-14 11:21:00 Discharged Inpatient (obs) 1 GONZALEZ ARENAS [facility] [id number] [facility] 2020-03-04 14:23:00 2020-03-04 23:59:00 Outpatient Asuncion Lr MHHOIP MHHOIP [id number] 2019-08-21 11:18:00 2019-08-21 23:59:00 Outpatient Aki Smith [facility]SE [facility] [id number] 2019-08-21 11:18:00 2019-08-21 11:18:00 Outpatient [facility] [facility] Results Test Description Test Time Test Comments Results Result Comments Source Capillary blood glucose measurement by glucometer (mas s/volume) 2020-06-14 07:33:00 Test Item Bedside Glucose (test code = 42068-7) 207 70-120 Meter ID: [id number] [facility]'s HospitalBlood leukocytes automated count (number/volume)2020-06-14 05:40:00* Test Item Value Reference Range Interpretation Comments White Blood Count (test code = 6690-2) 15.77 4.8-10.8 [facility] erythrocytes automated count (number/volume)2020-06-14 05:40:00* Test Item Value Reference Range Interpretation Comments Red Blood Count (test code = 789-8) 4.51 4.3-5.7 [facility] hemoglobin measurement (moles/volume)2020-06-14 05:40:00* Test Item Value Reference Range Interpretation Comments Hemoglobin (test code = 54685-7) 12.8 14.0-18.0 [facility] HospitalAutomated blood hematocrit (volume fraction)2020-06-14 05:40:00* Test Item Value Reference Range Interpretation Comments Hematocrit (test code = 4544-3) 39.7 38.2-49.6 [facility] HospitalAutomated erythrocyte mean corpuscular jrpwgn8340-24-55 05:40:00* Test Item Value Reference Range Interpretation Comments Mean Corpuscular Volume (test code = 787-2) 88.0 81-99 [facility] HospitalAutomated erythrocyte mean corpuscular hemoglobin (mass per erythrocyte)2020-06-14 05:40:00* Test Item Value Reference Range Interpretation Comments Mean Corpuscular Hemoglobin (test code = 785-6) 28.4 28-32 [facility] HospitalAutomated erythrocyte mean corpuscular hemoglobin concentration measurement (mass/volume)2020-06-14 05:40:00* Test Item Value Reference Range Interpretation Comments Mean Corpuscular Hemoglobin Concent (test code = 786-4) 32.2 31-35 [facility] HospitalRDW KebQi-Ztz4991-29-12 05:40:00* Test Item Value Reference Range Interpretation Comments Red Cell Distribution Width (test code = 09163-7) 13.8 11.7 -14.4 [facility] HospitalAutformerly [facility] hospitaled blood platelet count (count/volume)2020-06-14 05:40:00* Test Item Value Reference Range Interpretation Comments Platelet Count (test code = 777-3) 324 140-360 [facility] segmented neutrophil count as percentage of total wxaikehdyj4722-09-79 05:40:00* Test Item Value Reference Range Interpretation Comments Neutrophils (%) (Auto) (test code = 33771-0) 60.7 38.7-80.0 [facility] HospitalAutomated blood lymphocyte count as percentage ot total eppndqhzna9644-88-67 05:40:00* Test Item Value Reference Range Interpretation Comments Lymphocytes (%) (Auto) (test code = 736-9) 29.6 18.0-39.1 [facility] HospitalAutformerly [facility]ed blood monocyte count as percentage of total mbeeiwgtxw7230-83-79 05:40:00* Test Item Value Reference Range Interpretation Comments Monocytes (%) (Auto) (test code = 5905-5) 6.8 4.4-11.3 [facility] HospitalAutomated blood eosinophil count as percentage of total idkotkxwam4752-80-65 05:40:00* Test Item Value Reference Range Interpretation Comments Eosinophils (%) (Auto) (test code = 713-8) 1.8 0.0-6.0 [facility] HospitalAutomated blood basophil count as percentage of total wcrzwcawmw4300-59-87 05:40:00* Test Item Value Reference Range Interpretation Comments Basophils (%) (Auto) (test code = 706-2) 0.6 0.0-1.0 [facility] HospitalFluoroscopic procedure less than one hour iqlsnsom1518-50-06 05:40:00* Test Item Value Reference Range Interpretation Comments IM GRANULOCYTES % (test code = IM GRANULOCYTES %) 0.5 0.0- 1.0 [facility] neutrophil count 2020-06-14 05:40:00* Test Item Value Reference Range Interpretation Comments Neutrophils # (Auto) (test code = 751-8) 9.6 2.1-6.9 [facility] HospitalBlood lymphocytes count (number/volume) 2020-06-14 05:40:00* Test Item Value Reference Range Interpretation Comments Lymphocytes # (Auto) (test code = 04639-8) 4.7 1.0-3.2 [facility] monocytes automated count (number/volume)2020-06-14 05:40:00* Test Item Value Reference Range Interpretation Comments Monocytes # (Auto) (test code = 742-7) 1.1 0.2-0.8 [facility] HospitalAutomated blood eosinophil count 2020-06-14 05:40:00* Test Item Value Reference Range Interpretation Comments Eosinophils # (Auto) (test code = 711-2) 0.3 0.0-0.4 [facility] HospitalAutomated blood basophil count (count/volume)2020-06-14 05:40:00* Test Item Value Reference Range Interpretation Comments Basophils # (Auto) (test code = 704-7) 0.1 0.0-0.1 [facility] HospitalFluoroscopic procedure less than one hour fygtaqpi3393-23-01 05:40:00* Test Item Value Reference Range Interpretation Comments Absolute Immature Granulocyte (auto (elvia t code = Absolute Immature Granulocyte (auto) 0.08 0-0.1 [facility] Hospitaler[facility] or plasma sodium measurement (moles/volume)2020-06-14 05:40:00* Test Item Value Reference Range Interpretation Comments Sodium Level (test code = 2951-2) 139 136-145 [facility] Hospitalerum or plasma potassium measurement (moles/volume)2020-06-14 05:40:00* Test Item Value Reference Range Interpretation Comments Potassium Level (test code = 2823-3) 3.1 3.5-5.1 [facility] Hospitalerum or plasma chloride measurement (moles/volume)2020-06-14 05:40:00* Test Item Value Reference Range Interpretation Comments Chloride Level (test code = 2075-0) 101 98-107 [facility] Hospitalerum or plasma carbon dioxide, total measurement (moles/volume)2020-06-14 05:40:00* Test Item Value Reference Range Interpretation Comments Carbon Dioxide Level (test code = 2028-9) 25 22-29 [facility] Hospitalerum or plasma anion mky4857-80-80 05:40:00* Test Item Value Reference Range Interpretation Comments Anion Gap (test code = 14942-2) 16.1 8-16 [facility] Hospitalerum or plasma urea nitrogen measurement (mass/volume)2020-06-14 05:40:00* Test Item Value Reference Range Interpretation Comments Blood Urea Nitrogen (test code = 3094-0) 40 7-26 [facility] Hospitalerum or plasma creatinine measurement (mass/volume)2020-06-14 05:40:00* Test Item Value Reference Range Interpretation Comments Creatinine (test code = 2160-0) 3.11 0.72-1.25 [facility] Hospitalerum or plasma urea nitrogen/creatinine mass fufqn6974-69-62 05:40:00* Test Item Value Reference Range Interpretation Comments BUN/Creatinine Ratio (test code = 3097-3) 13 6-25 [facility] HospitalEstimated glomerular filtration rate (GFR) awufzttpmqepx7814-62-58 05:40:00* Test Item Value Reference Range Interpretation Comments Estimat Glomerular Filtration Rate (test code = 617340271) 21 >60 Ranges were taken from the National Kidney Disease Education Program and the [facility] Hospitalal Kidney Foundation literature.Reference ranges:60 or greater: Smxqbt44-72 ( for 3 consecutive months): Chronic kidney disease 15 or less: Kidney failureTexas Children's HospitalGlucose edlnawbdhxe4650-42-54 05:40:00* Test Item Value Reference Range Interpretation Comments Glucose Level (test code = DLA8488) 187 74-118 [facility] Hospitalerum or plasma calcium measurement (mass/volume)2020-06-14 05:40:00* Test Item Value Reference Range Interpretation Comments Calcium Level (test code = 06603-0) 8.6 8.4-10.2 [facility] HospitalFluoroscopic procedure less than one hour sgebgkvf6923-64-10 05:40:00* Test Item Value Reference Range Interpretation Comments Hemoglobin A1c Percent (test code = Hemoglobin A1c Percent) 8.8 4.0-7.0 [facility] Hospitaler[facility] or plasma total bilirubin measurement (mass/volume)2020-06-14 05:40:00* Test Item Value Reference Range Interpretation Comments Total Bilirubin (test code = 1975-2) 0.6 0.2-1.2 [facility] HospitalFluoroscopic procedure less than one hour ekszunyv5579-64-88 05:40:00* Test Item Value Reference Range Interpretation Comments Aspartate Amino Transf (AST/SGOT) (test code = Aspartate Amino Transf (AST/SGOT)) 22 5-34 [facility] Hospitalerum or plasma alanine aminotransferase measurement (enzymatic activity/volume)2020-06-14 05:40:00* Test Item Value Reference Range Interpretation Comments Alanine Aminotransferase (ALT/SGPT) (test code = 1742-6) 10 0-55 [facility] Hospitalerum or plasma protein measurement (mass/volume)2020-06-14 05:40:00* Test Item Value Reference Range Interpretation Comments Total Protein (test code = 2885-2) 7.5 6.5-8.1 [facility] Hospitalerum or plasma albumin measurement (mass/volume)2020-06-14 05:40:00* Test Item Value Reference Range Interpretation Comments Albumin (test code = 1751-7) 3.4 3.5-5.0 [facility] HospitalPlasma globulin measurement (mass/volume) 2020-06-14 05:40:00* Test Item Value Reference Range Interpretation Comments Globulin (test code = 57411-1) 4.1 2.3-3.5 [facility] Hospitalerum or plasma albumin/globulin mass ocfur6210-33-99 05:40:00* Test Item Value Reference Range Interpretation Comments Albumin/Globulin Ratio (test code = 1759-0) 0.8 0.8-2.0 [facility] Hospitalerum or plasma alkaline phosphatase measurement (enzymatic activity/volume)2020-06-14 05:40:00* Test Item Value Reference Range Interpretation Comments Alkaline Phosphatase (test code = 6768-6) 83 40-150 [facility] Hospitalerum or plasma triglyceride measurement (mass/volume)2020-06-14 05:40:00* Test Item Value Reference Range Interpretation Comments Triglycerides Level (test code = 2571-8) 120 0-149 [facility] Hospitalerum or plasma cholesterol measurement (mass/volume)2020-06-14 05:40:00* Test Item Value Reference Range Interpretation Comments Cholesterol Level (test code = 2093-3) 114 0-199 Less than 200 mg/dL Low Njav713 - 239 mg/dL Borderline Napt039 m g/dl and greater High Risk [facility]er[facility] or plasma cholesterol in LDL measurement (mass/volume) 2020-06-14 05:40:00* Test Item Value Reference Range Interpretation Comments LDL Cholesterol (test code = 2089-1) 59 60-130 [facility] Hospitalerum or plasma cholesterol in HDL measurement (mass/volume)2020-06-14 05:40:00* Test Item Value Reference Range Interpretation Comments HDL Cholesterol (test code = 2085-9) 31 40-60 [facility] Hospitalerum or plasma total cholesterol/cholesterol in HDL mass wkqfw0275-52-90 05:40:00* Test Item Value Reference Range Interpretation Comments Cholesterol/HDL Ratio (test code = 9830-1) 3.7 3.9-4.7 [facility] Hospitalerum or plasma thyrotropin measurement by detection limit <= 0.005 miu/l (units/volume)2020-06-14 05:40:00* Test Item Value Reference Range Interpretation Comments Thyroid Stimulating Hormone (TSH) (test code = 68989-6) 1.328 0.350-4.940 [facility] HospitalVQ LUNG SCAN VENT YVGOHCZTW1118-92-76 16:09:00 [facility] [address] [address] Patient Name: DENNIS NAM MR #: [id number] : 1970 Age/Sex: 50/M Req #: [id number] Adm Physician: GONZALEZ ARENAS MD Ordered by: NELLIE KRAUS DO Report #: [id number] Location: [facility] Room/Bed: [place] [address] Procedure: [id number] NM/VQ LUNG S CAN VENT PERFUSION Exam Date: Exam Time: REPORT STATUS: Signed Perfusion Lung Sc an NOTE: Lung ventilation studies with xenon are not being performed per th e recommendation of the Society of Nuclear Medicine and Molecular Imaging. It is not possible to be certain that the ventilation system is adequately dis infected. Ventilation studies with Tc-99m DTPA particles is contraindicated b ecause the delivery by nebulization generates too many water droplets from the patient's airway. Clinical Information: Acute onset dyspnea Compari son: Chest radiograph 06/13/2020; Ct chest w/o contrast 06/13/2020 Discussi on: Ventilation images were not obtained. See note above. Perfusion image s of the lungs were obtained in multiple projections following intravenous adm inistration of approximately 6 mCi of Tc-99m MAA. Distribution of tracer appea rs physiologic throughout the lungs. No segmental perfusion defects of any si ze are present. The cardiomediastinal silhouette is borderline enlarged. Impression: 1. Scan findings represent a VERY LOW probability for ac lisa pulmonary embolic disease based on the perfusion-only modified PIOPED II c riteria. Concurrent ventilation study would not alter the assigned probabilit y for acute PE. 2. Borderline enlarged cardiac silhouette. Signed by: Dr Eliane Lewis M.D. on 06/13/2020 4:14 PM Dictated By: TIFFANI LEWIS MD El ectronically Signed By: TIFFANI LEWIS MD on 06/13/201613 Transcribed By: KEN on 06/13/201613 COPY TO: NELLIE KRAUS DO CT CHEST WO 2020-06-13 14:35:00 [place] [address] Patient Name: DENNIS NAM MR #: [id number] : 1970 Age/Sex: 50/M Req #: [id number] Adm Physician: GONZALEZ ARENAS MD Ordered by: NELLIE KRAUS DO Report #: [id number] Location: [facility] Room/Bed: [place] [address] Procedure: [id number] CT/CT CHEST W O Exam Date: 06/13/20 Exam Time: 1401 REPORT STATUS: Signed EXAM: CT Chest WITHOUT c ontrast INDICATION: Chest pain and shortness of breath. COMPARISON: Same day chest radiograph. TECHNIQUE: Chest was scanned utilizing a multidetector helical scanner from the lung apex through the level of the adrenal glands wi thout administration of IV contrast. Absence of intravenous contrast decreases sensitivity for detection of lymphadenopathy and vascular pathology. Coronal and sagittal reformations were obtained. Routine protocol was performed. IV CONTRAST: None COMPLICATIONS: None RADIATION DOSE: Tot al DLP: 536 mGy*cm Estimated effective dose: (DLP x 0.014 x size factor) mSv CTDIvol has been reviewed. It is below the limits set by the Radiatio n Protocol Committee (RPC). Dose modulation, iterative reconstruction, and/or weight based adjustment of the mA/kV was utilized to reduce the radiati on dose to as low as reasonably achievable. FINDINGS: LI CATALINO/ TUBES: None. LUNGS, PLEURA AND AIRWAYS: Airways are normal. There is bibasilar atelectasis. No focal consolidation, pleural effusion or pneumothora x. HEART AND MEDIASTINUM: The thyroid gland is normal. No mediastinal, hi lar or axillary lymphadenopathy. The heart is normal in size. There is no per icardial effusion. There are mild atherosclerotic calcifications in the aorta and coronary arteries. UPPER ABDOMEN: Unremarkable. BONES: There ar e degenerative changes in the thoracic spine with slightly increased kyphosis. SOFT TISSUES: Unremarkable. IMPRESSION: No acute intrathoracic abno rmality identified. Specifically, no focal consolidation, pleural effusion or pneumothorax. Signed by: Himanshu Avila MD on 06/13/2020 2:50 PM Dict ated By: HIMANSHU AVILA MD 49 COPY TO: LEEANNA KRAUS, DO Fluoroscopic procedure less than one hour rcvbveal4873-12-36 12:20:00* Test Item Value Reference Range Interpretation Comments Coronavirus (PCR) (test code = Coronavirus (PCR)) NOT DETECTED NOTD ETECTED SARS-COV2/RT-PCRNegative results do not preclude SARS-CoV-2 infection and should not be used as the sole basis for patient management decisions. Negative result s must be combined with clinical observations, patient history, and epidemiologi vicente information. A false negative result may occur if a specimen is improperly c ollected, transported or handled.The limit of detection for this assay is 250 co pies/mLThe SARS-CoV-2 test is a rapid, real-time RT-PCR test intended for the qu alitative detection of nucleic acid from SARS-CoV-2 in nasopharyngeal swab speci men collected from individuals suspected of COVID-19 by their healthcare provide r. This test has not been Food and Drug Administration (FDA) cleared or approved and has been authorized by FDA under an Emergency Use Authorization (EUA). This EUA will be effective until the declaration that circumstances exist justifying the authorization of the emergency use of in vitro diagnostic test for detectio n and or diagnosis of COVID-19 is terminated under section 564(b) of the Act, or the the EUA is revoked under 564(g) of the ACT.Testing performed by [address] [place], [place] [address]CHES SINGLE (PORTABLE)2020-06-13 12:13:00 [facility] [address] [address] Patient Name: DENNIS NAM MR #: [id number] : 1970 Age/Sex: 50/M Req #: [id number] Adm Physician: Ordered by: NELLIE KRAUS DO Report #: [id number] Location: ER Room/Bed: Procedure: [id number] DX/CHEST SING LE (PORTABLE) Exam Date: 06/13/20 Exam Time: 1110 REPORT STATUS: Signed EXAMINATION: CHEST SINGLE (PORTABLE) INDICATION: Dizziness and shortness of breath . COMPARISON: None FINDINGS: TUBES and LINES: None. LUNGS: Normal lung volumes. Lungs are clear. No consolidations. There is bibasilar atelectasis. PLEURA: No pleural effusion or pneumothorax. HEART AND MEDIASTINUM: The cardiomediastinal silhouette is unremarkable. BONES AND SOFT TISSUES: No acute osseous lesion. Soft tissues are unremar kable. UPPER ABDOMEN: No free air under the diaphragm. IMPRESSION: No acute thoracic radiographic abnormality. Signed by: Himanshu hernandez MD on 06/13/2020 12:14 PM Dictated By: HIMANSHU AVILA MD Electronica lly Signed By: HIMANSHU AVILA MD on 06/13/201213 Transcribed By: KEN on 1213 COPY TO: NELLIE KRAUS DO Prothrombin time (PT) in platelet poor plasma by coagulation [id number] 12:00:00* Test Item Value Reference Range Interpretation Comments Prothrombin Time (test code = 5902-2) 13.7 11.9-14.5 [facility] in Platelet poor plasma by Coagulation moiaj4685-99-59 12:00:00* Test Item Value Reference Range Interpretation Comments Prothromb Time International Ratio (test code = 6301-6) 1.00 Oral Anticoagulant Therapy INR Values:1. Low Intensity Therapy 1.5 - 2.02 . Moderate Intensity Therapy 2.0 - 3.03. High Intensity Therapy(1) 2.5 - 3. 54. High Intensity Therapy(2) 3.0 - 4.05. Panic Value INR > 5.0 [facility] HospitalBNP Gak-cBkk9924-69-11 12:00:00* Test Item Value Reference Range Interpretation Comments B-Type Natriuretic Peptide (test code = 05012-6) < 10.0 0-100 [facility] or plasma creatine kinase measurement (enzymatic activity/volume)2020-06-13 12:00:00* Test Item Value Reference Range Interpretation Comments Creatine Kinase (test code = 2157-6) 88 30-200 [facility] or plasma creatine kinase MB measurement (mass/volume)2020-06-13 12:00:00* Test Item Value Reference Range Interpretation Comments Creatine Kinase MB (test code = 50488-8) 0.90 0-5.0 [facility] HospitalTroponin I measurement by highly sensitive enzyme seuvslazrhi7414-81-01 12:00:00* Test Item Value Reference Range Interpretation Comments Troponin I (test code = 14822-5) 0.014 0-0.300 [facility]
--- OUTSIDE RECORDS SUMMARY | 2020-07-14 09:35 | XMS REPORT | Continuity of Care Document ---
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 [id number] 03/04/[address] Other Tumor [...] recommended. Jez Skelton MD On 08/22/2019 08:26:26; [id number] 08/21/2019 [facility] Consultation Notes No Data Provided for This Section Discharge Summaries No Data Provided for This Section History and Physicals No Data Provided for This Section Vital Signs No Data Provided for This Section Encounters Location Location Details Encounter Type Encounter Number Reason For Visit Attending Provider ADM Date DC Date Status Source Outpatient [id number] Irfteja Jawed 08/21/2019 08/22/2019 [facility] [id number] Asuncion [facility] 03/04/2020 03/05/2020 [facility] Procedures No Data Provided for This Section Assessment and Plan No Data Provided for This Section Plan of Care No Data Provided for This Section Social History Social History Date Source Social History TypeResponse 03/05/2020 [facility] Social History TypeResponse 08/22/2019 [facility] Family History No Data Provided for This Section Advance Directives No Data Provided for This Section Functional Status No Data Provided for This Section
[2020-07-14 09:38] LABS: BASOPHILS # (AUTO) 0.1 (0.0-0.1); BASOPHILS % 0.8 % (0.0-1.0); EOSINOPHILS # (AUTO) 0.3 (0.0-0.4); EOSINOPHILS % 2.2 % (0.0-6.0); HEMATOCRIT 40.6 % (38.2-49.6); HEMOGLOBIN 13.2 g/dL (14.0-18.0); LYMPHOCYTES # (AUTO) 2.4 (1.0-3.2); LYMPHOCYTES % 18.3 % (18.0-39.1); MEAN CORPUSCULAR HEMOGLOBIN 29.2 pg (28-32); MEAN CORPUSCULAR HGB CONC 32.5 g/dL (31-35); MEAN CORPUSCULAR VOLUME 89.8 fL (81-99); MONOCYTES % 7.5 % (4.4-11.3); NEUTROPHILS # (AUTO) 9.3 (2.1-6.9); NEUTROPHILS % 70.1 % (38.7-80.0); PLATELET COUNT 320 x10e3/uL (140-360); RED BLOOD COUNT 4.52 x10e6/uL (4.3-5.7)
[2020-07-14 09:48] LABS: INR 1.01; PROTHROMBIN TIME 13.8 seconds (11.9-14.5)
[2020-07-14 09:59] LABS: ALBUMIN 3.4 g/dL (3.5-5.0); ALBUMIN/GLOBULIN RATIO 0.7 (0.8-2.0); ANION GAP 14.2 mmol/L (8-16); CALCIUM 8.8 mg/dL (8.4-10.2); CREATININE, SERUM 2.62 mg/dL (0.72-1.25); POTASSIUM 4.2 mmol/L (3.5-5.1)
--- NOTE | 2020-07-14 10:39 | Diagnostic Imaging Report ---
Chest, 1 view, 07/14/2020. History: Lower extremity swelling. Comparison: 06/13/2020. Findings: The cardiomediastinal silhouette and pulmonary vasculature are mildly prominent. There is no focal consolidation or pleural effusion. Linear opacities are present lung bases. There are no acute osseous or soft tissue abnormalities. Impression: Mild cardiomegaly, vascular congestion, and bibasilar atelectasis. Signed by: Ernst Gonzalez on 07/14/2020 10:36 AM
== END 2020-07-14 11:52 | disposition home or self-care (01) ==
LOC: ER 09:33
DX: R60.9 Edema, unspecified (principal); E11.65 Type 2 diabetes mellitus with hyperglycemia; I50.9 Heart failure, unspecified; M79.89 Other specified soft tissue disorders; I10 Essential (primary) hypertension; Z85.528 Personal history of other malignant neoplasm of kidney; R94.31 Abnormal electrocardiogram [ECG] [EKG]
CPT/HCPCS: 36415; 71045; 80053; 83880; 84484; 85025; 85610; 93005; 93970; 99284

== ENCOUNTER 2021-06-17 07:29 | Emergency (ER) | payer BC, MEDICARE ==
[~2021-06-17] VITALS: Ht 170.2 cm; Wt 149.2 kg
== END 2021-06-17 08:05 | disposition home or self-care (01) ==
LOC: ER 07:35
DX: R20.0 Anesthesia of skin (principal); T36.0X5A Adverse effect of penicillins, initial encounter; T36.1X5A Adverse effect of cephalosporins and other beta-lactam antibiotics, initial encounter; I10 Essential (primary) hypertension; E11.9 Type 2 diabetes mellitus without complications; I50.9 Heart failure, unspecified; Z85.528 Personal history of other malignant neoplasm of kidney
CPT/HCPCS: 99282

== ENCOUNTER 2023-02-03 09:44 | Observation (INO) | payer MEDICARE ==
[~2023-02-03] VITALS: Ht 167.6 cm; Wt 136.3 kg
[2023-02-03] MEDS ORDERED: ONDANSETRON HCL INJ 2MG/ML 2ML 2 MG/ML VIAL IV STA (10:01)
[2023-02-03] MEDS ORDERED: SODIUM CHLORIDE 0.9% 1000ML 1,000 ML IV STA (10:01)
[2023-02-03] MEDS ORDERED: ONDANSETRON HCL INJ 2MG/ML 2ML 2 MG/ML VIAL ONE (10:09)
[2023-02-03] MEDS ORDERED: SODIUM CHLORIDE 0.9% 1000ML 1,000 ML ONE (10:09)
[2023-02-03 10:11] LABS: BASOPHILS # (AUTO) 0.1 (0.0-0.1); BASOPHILS % 0.4 % (0.0-1.0); EOSINOPHILS # (AUTO) 0.2 (0.0-0.4); EOSINOPHILS % 1.3 % (0.0-6.0); HEMATOCRIT 37.8 % (38.2-49.6); LYMPHOCYTES # (AUTO) 2.6 (1.0-3.2); LYMPHOCYTES % 18.5 % (18.0-39.1); MEAN CORPUSCULAR HGB CONC 31.7 g/dL (31-35); MEAN CORPUSCULAR VOLUME 88.1 fL (81-99); MONOCYTES % 7.3 % (4.4-11.3); NEUTROPHILS # (AUTO) 10.1 (2.1-6.9); PLATELET COUNT 410 x10e3/uL (140-360); RED BLOOD COUNT 4.29 x10e6/uL (4.3-5.7)
[2023-02-03 10:27] LABS: ALBUMIN 3.4 g/dL (3.5-5.0); ALBUMIN/GLOBULIN RATIO 0.7 (0.8-2.0); ANION GAP 17.2 mmol/L (8-16); CALCIUM 9.4 mg/dL (8.4-10.2); CREATININE, SERUM 5.24 mg/dL (0.72-1.25); POTASSIUM 3.2 mmol/L (3.5-5.1)
[2023-02-03] MEDS ORDERED: POTASSIUM CHLORIDE 20 MEQ TAB CR PO STA (10:46)
[2023-02-03] MEDS ORDERED: POTASSIUM CHLORIDE 20 MEQ TAB CR PO ONE (10:53)
[2023-02-03 11:35] LABS: CLARITY,URINE HAZY (CLEAR); COLOR,URINE YELLOW (YELLOW); LEUKOCYTE ESTERASE ,URINE NEGATIVE (NEGATIVE); NITRITE,URINE NEGATIVE (NEGATIVE)
[2023-02-03 11:36] LABS: BACTERIA,URINE FEW /HPF; EPITHELIAL CELLS,URINE FEW /LPF; KETONES,URINE NEGATIVE (NEGATIVE); PROTEIN,URINE DIPSTICK 2+ (NEGATIVE); RBC,URINE 0-5 /HPF (0-5); URINE UROBILINOGEN 0.2 mg/dL (0.2 - 1); WBC,URINE (MAN) 0-5 /HPF (0-5)
[2023-02-03] MEDS ORDERED: ONDANSETRON HCL INJ 2MG/ML 2ML 2 MG/ML VIAL IV PRN (12:00)
[2023-02-03 13:08] VITALS: BP 114/75; PULSE 66; RESP 20; TEMP 98.1; O2SAT 99
[2023-02-03] MEDS: SODIUM CHLORIDE 0.9% 1000ML 1,000 ML IV SCH (13:45)
[2023-02-03 14:01] VITALS: BP 114/75; PULSE 66; RESP 20; TEMP 98.1; O2SAT 99
[2023-02-03 14:22] VITALS: BP 114/75; PULSE 66; RESP 18; TEMP 98; O2SAT 98
[2023-02-03] MEDS ORDERED: DOXAZOSIN MESYLA2 MG PO (15:23)
[2023-02-03] MEDS ORDERED: ALLOPURINOL100 MG PO (15:23)
[2023-02-03 15:46] VITALS: BP 116/60; PULSE 63; RESP 17; TEMP 97.4; O2SAT 99
[2023-02-03] MEDS ORDERED: TRAMADOL HCL 50 MG TAB PO PRN (17:00)
[2023-02-03] MEDS ORDERED: DEXTROSE 50% SYRINGE 50 ML IV PRN (17:00)
[2023-02-03] MEDS ORDERED: METOCLOPRAMIDE HCL 10 MG/2ML VIAL IV ONE (18:00)
[2023-02-03 20:10] VITALS: BP 119/59; PULSE 72; RESP 20; TEMP 98.9; O2SAT 97
[2023-02-03] MEDS: INSULIN LISPRO 100 UNIT/1 ML 3ML VIAL SQ SCH (20:20)
[2023-02-03] MEDS: SIMVASTATIN 20 MG TAB PO SCH (21:23)
[2023-02-03] MEDS: DOXAZOSIN MESYLATE 2 MG TAB PO SCH (21:23)
[2023-02-03] MEDS: ALLOPURINOL 100 MG TAB PO SCH (21:23)
[2023-02-03 21:30] VITALS: BP 119/59; PULSE 72; RESP 20; TEMP 98.9; O2SAT 97
[2023-02-04] VITALS (8 sets, daily range): BP systolic 93–162; BP diastolic 53–70; PULSE 56–69; RESP 18–20; TEMP 98.2–98.6; O2SAT 97–100
[2023-02-04] MEDS: SODIUM CHLORIDE 0.9% 1000ML 1,000 ML IV SCH (00:53)
[2023-02-04 05:34] LABS: BASOPHILS # (AUTO) 0.1 (0.0-0.1); BASOPHILS % 0.4 % (0.0-1.0); EOSINOPHILS # (AUTO) 0.2 (0.0-0.4); EOSINOPHILS % 1.3 % (0.0-6.0); HEMATOCRIT 33.1 % (38.2-49.6); HEMOGLOBIN 10.4 g/dL (14.0-18.0); LYMPHOCYTES # (AUTO) 2.6 (1.0-3.2); LYMPHOCYTES % 17.8 % (18.0-39.1); MEAN CORPUSCULAR HEMOGLOBIN 27.7 pg (28-32); MEAN CORPUSCULAR HGB CONC 31.4 g/dL (31-35); MONOCYTES # (AUTO) 1.2 (0.2-0.8); MONOCYTES % 8.5 % (4.4-11.3); NEUTROPHILS # (AUTO) 10.3 (2.1-6.9); NEUTROPHILS % 71.4 % (38.7-80.0); PLATELET COUNT 383 x10e3/uL (140-360); RED BLOOD COUNT 3.76 x10e6/uL (4.3-5.7)
[2023-02-04 05:50] LABS: ALBUMIN 2.8 g/dL (3.5-5.0); ALBUMIN/GLOBULIN RATIO 0.6 (0.8-2.0); ANION GAP 13.9 mmol/L (8-16); CALCIUM 8.5 mg/dL (8.4-10.2); CREATININE, SERUM 5.09 mg/dL (0.72-1.25)
[2023-02-04 05:56] LABS: POTASSIUM 2.9 mmol/L (3.5-5.1)
[2023-02-04] MEDS ORDERED: POTASSIUM CHLORIDE 20 MEQ TAB CR PO STA (06:04)
[2023-02-04] MEDS ORDERED: POTASSIUM CHLORIDE 20MEQ/100ML 100 ML IV ONE (06:15)
[2023-02-04] MEDS: INSULIN LISPRO 100 UNIT/1 ML 3ML VIAL SQ SCH ×4 (07:30→21:01)
[2023-02-04] MEDS: AMLODIPINE BESYLATE 10 MG TAB PO SCH (08:29)
[2023-02-04] MEDS: LOSARTAN POTASSIUM 100 MG TAB PO SCH (08:30)
[2023-02-04] MEDS: METOPROLOL TARTRATE 50 MG TAB PO SCH (08:30)
[2023-02-04] MEDS: TRAMADOL HCL 50 MG TAB PO PRN ×2 (14:38→23:27)
[2023-02-04] MEDS: SIMVASTATIN 20 MG TAB PO SCH (20:58)
[2023-02-04] MEDS: ALLOPURINOL 100 MG TAB PO SCH (20:58)
[2023-02-04] MEDS: DOXAZOSIN MESYLATE 2 MG TAB PO SCH (20:58)
[2023-02-04] MEDS ORDERED: ONDANSETRON HCL INJ 2MG/ML 2ML 2 MG/ML VIAL IV PRN (21:30)
[2023-02-04] MEDS ORDERED: ACETAMINOPHEN 325 MG TAB PO PRN (21:30)
[2023-02-05] VITALS: BP 116/61; PULSE 77; RESP 18; TEMP 98.8; O2SAT 97
[2023-02-05 04:00] VITALS: BP 128/55; PULSE 71; RESP 20; TEMP 98.6; O2SAT 99
[2023-02-05] MEDS ORDERED: REGLAN5 MG PO (07:02)
[2023-02-05] MEDS: AMLODIPINE BESYLATE 10 MG TAB PO SCH (07:56)
[2023-02-05] MEDS: INSULIN LISPRO 100 UNIT/1 ML 3ML VIAL SQ SCH ×2 (07:56→11:48)
[2023-02-05] MEDS: METOPROLOL TARTRATE 50 MG TAB PO SCH (07:57)
[2023-02-05] MEDS: LOSARTAN POTASSIUM 100 MG TAB PO SCH (07:57)
[2023-02-05 08:01] LABS: BASOPHILS # (AUTO) 0.1 (0.0-0.1); BASOPHILS % 0.5 % (0.0-1.0); EOSINOPHILS # (AUTO) 0.2 (0.0-0.4); EOSINOPHILS % 1.1 % (0.0-6.0); HEMATOCRIT 33.2 % (38.2-49.6); HEMOGLOBIN 10.3 g/dL (14.0-18.0); LYMPHOCYTES # (AUTO) 2.4 (1.0-3.2); LYMPHOCYTES % 17.4 % (18.0-39.1); MEAN CORPUSCULAR VOLUME 90.2 fL (81-99); MONOCYTES # (AUTO) 1.2 (0.2-0.8); MONOCYTES % 8.9 % (4.4-11.3); NEUTROPHILS # (AUTO) 9.8 (2.1-6.9); NEUTROPHILS % 71.6 % (38.7-80.0); PLATELET COUNT 400 x10e3/uL (140-360); RED BLOOD COUNT 3.68 x10e6/uL (4.3-5.7); RED CELL DISTRIBUTION WIDTH 15.2 % (11.7-14.4)
[2023-02-05 08:51] LABS: ALBUMIN 2.9 g/dL (3.5-5.0); ALBUMIN/GLOBULIN RATIO 0.6 (0.8-2.0); ANION GAP 13.3 mmol/L (8-16); CALCIUM 8.7 mg/dL (8.4-10.2); CREATININE, SERUM 4.6 mg/dL (0.72-1.25); POTASSIUM 3.3 mmol/L (3.5-5.1)
[2023-02-05 08:54] VITALS: BP 129/61; PULSE 74; RESP 18; TEMP 99; O2SAT 98
[2023-02-05] MEDS ORDERED: ONDANSETRON HCL 4 MG ORAL DISINTEGRATING TAB PO PRN (09:15)
[2023-02-05 09:17] VITALS: BP 129/61; PULSE 74; RESP 18; TEMP 99; O2SAT 98
[2023-02-05] MEDS: TRAMADOL HCL 50 MG TAB PO PRN (10:56)
[2023-02-05] MEDS ORDERED: SODIUM BICARBONATE 650 MG TAB PO SCH (12:00)
[2023-02-05] MEDS ORDERED: POTASSIUM CHLORIDE 10MEQ EA PO ONE (12:00)
[2023-02-05 12:45] VITALS: BP 116/51; PULSE 65; RESP 20; TEMP 98.4; O2SAT 98
== END 2023-02-05 12:57 | disposition home or self-care (01) ==
LOC: ER 09:47 → ERHOLD 11:53 → MED/SURG2 12:56
PROVIDERS: ADMIT Internal Medicine; ATTEND Internal Medicine
DX: N17.9 Acute kidney failure, unspecified (principal); R19.7 Diarrhea, unspecified; E86.0 Dehydration; E87.6 Hypokalemia; E87.20 Acidosis, unspecified; E11.22 Type 2 diabetes mellitus with diabetic chronic kidney disease; I12.9 Hypertensive chronic kidney disease with stage 1 through stage 4 chronic kidney disease, or unspecified chronic kidney disease; N18.4 Chronic kidney disease, stage 4 (severe); E11.43 Type 2 diabetes mellitus with diabetic autonomic (poly)neuropathy; K31.84 Gastroparesis; Z79.84 Long term (current) use of oral hypoglycemic drugs; Z79.4 Long term (current) use of insulin; D63.8 Anemia in other chronic diseases classified elsewhere; M45.9 Ankylosing spondylitis of unspecified sites in spine; E66.01 Morbid (severe) obesity due to excess calories; Z68.42 Body mass index [BMI] 45.0-49.9, adult; M10.9 Gout, unspecified; Z85.528 Personal history of other malignant neoplasm of kidney; Z90.5 Acquired absence of kidney; Z90.49 Acquired absence of other specified parts of digestive tract; Z79.899 Other long term (current) drug therapy
CPT/HCPCS: 0223U; 36415 ×3; 71045; 74019; 74176; 80053 ×3; 81001; 82948 ×3; 83036; 83735 ×2; 84484; 85025 ×3; 87086; 99284; C9113; G0378 ×3; J2405; J2765; J3480; J7030 ×2

== ENCOUNTER 2024-09-01 00:15 | Emergency (ER) | payer MEDICARE ==
[~2024-09-01] VITALS: Ht 167.6 cm; Wt 136.1 kg
[~2024-09-01 00:15] MED LIST changes: +ALLOPURINOL100 MG PO; +DOXAZOSIN MESYLA2 MG PO; +REGLAN5 MG PO
[2024-09-01 00:17] VITALS: PULSE 71; RESP 20; TEMP 98.1; O2SAT 100
[2024-09-01] MEDS ORDERED: AMOX TR-K CLV1 EAC2 PO (00:19)
[2024-09-01] MEDS ORDERED: ULTRAM 50MG50 MG PO (00:23)
[2024-09-01] MEDS: LIDOCAINE 1% W/EPINEPHRINE 20 ML VIAL INJ ONE (00:26)
== END 2024-09-01 00:27 | disposition home or self-care (01) ==
LOC: ER 00:18
DX: K08.89 Other specified disorders of teeth and supporting structures (principal); K04.7 Periapical abscess without sinus; I10 Essential (primary) hypertension; E11.9 Type 2 diabetes mellitus without complications; I50.9 Heart failure, unspecified; M54.9 Dorsalgia, unspecified; G89.29 Other chronic pain; Z85.528 Personal history of other malignant neoplasm of kidney
CPT/HCPCS: 99282